=== PATIENT | male | born 1985 | race Hispanic/Latino ===

== ENCOUNTER 2022-10-14 08:40 | Emergency (ER) | payer OTHER ==
[~2022-10-14] VITALS: Ht 165.1 cm; Wt 68.9 kg
[2022-10-14 08:53] VITALS: BP 122/76
[2022-10-14 09:01] VITALS: BP 126/72
[2022-10-14 09:30] VITALS: BP 120/80
[2022-10-14 10:00] VITALS: BP 111/75
[2022-10-14] MEDS ORDERED: CEFDINIR300 MG PO (10:55)
[2022-10-14 11:12] VITALS: BP 111/75
== END 2022-10-14 11:18 | disposition home or self-care (01) | DRG 605 ==
LOC: ED 08:40
PROC: 0HQDXZZ Repair Right Lower Arm Skin, External Approach (ICD-10-PCS; principal; 2022-10-14)
DX: S51.811A Laceration without foreign body of right forearm, initial encounter (principal); X58.XXXA Exposure to other specified factors, initial encounter